=== PATIENT | male | born 1935 | race Caucasian/White ===

== ENCOUNTER 2017-08-11 14:44 | Emergency (ER) | payer MEDICARE ==
[~2017-08-11] VITALS: Ht 182.9 cm; Wt 63.5 kg
[~2017-08-11 14:44] MED LIST: ACET-1079 PO; ASPI-231 PO; BIS10RS PR; CHL10C PO; CLON0.1T PO; DON5T PO; HYDR-4683 PO; LAC30LQ PO; MET50T PO; MOMLQ PO; PROM25TA5 OR; RIV20T PO; SERT25TA84 PO; SODIENE26 RE; THIA50CA PO; ZOLP10TA PO; [UNRECOGNIZED DRUG - REMARK]
[2017-08-11 14:52] VITALS: BP 125/65
[2017-08-11 15:25] LABS: Basophils # (auto) 0.1 uL; Basophils % (auto) 1.2 % (0.0-2.0); Eosinophils # (auto) 0.2 uL; Eosinophils % (auto) 2.6 % (0.0-7.0); Hematocrit 36.5 % (41.0-53.0); Hemoglobin 12.3 g/dL (13.5-17.5); Lymphocytes # (auto) 2.1 uL; Mean Corpuscular Hemoglobin 31.3 pg (28.0-32.0); Mean Corpuscular Hgb Conc. 33.7 g/dL (32.0-36.0); Mean Corpuscular Volume 92.8 fL (80.0-100.0); Monocytes # (auto) 0.8 uL; Monocytes % (auto) 11.1 % (0.0-12.0); Neutrophils # (auto) 4.3 uL; Neutrophils % (auto) 57.1 % (37.0-80.0); Nucleated Red Blood Cells % 0.1 %; Platelet Count (auto) 237 10^3/uL (140-450); Red Blood Cells 3.93 10^6/uL (4.5-5.90); Red Cell Distribution Width 13.8 % (11.8-14.3); White Blood Cell 7.6 10^3/uL (4.4-10.8)
[2017-08-11 16:01] LABS: Alanine Aminotransferase 21 U/L (16-61); Albumin 3.8 g/dL (3.4-5.0); Alkaline Phosphatase 67 U/L (45-117); Anion Gap 10 (5-15); Aspartate Aminotransferase 20 U/L (15-37); BUN/Creatinine Ratio 17.8; Bilirubin, Total 0.8 mg/dL (0.2-1.0); Blood Alcohol < 3.0 mg/dL (0-5); Blood Urea Nitrogen 28 mg/dL (7-18); Calcium 8.9 mg/dL (8.5-10.1); Carbon Dioxide 21 mmol/L (21-32); Chloride 107 mmol/L (98-107); GFR African American 55 mL/min; GFR Non-African American 45 mL/min; Glucose 97 mg/dL (74-106); Magnesium 2.3 mg/dL (1.6-2.6); Potassium 4.7 mmol/L (3.5-5.1); Sodium 138 mmol/L (136-145); Total Protein 7.7 g/dL (6.4-8.2)
== END 2017-08-11 15:50 | disposition left against medical advice (07) ==
LOC: EDUNIT# 14:44 → ER 14:50
DX: R41.82 Altered mental status, unspecified (principal); Z53.21 Procedure and treatment not carried out due to patient leaving prior to being seen by health care provider
CPT/HCPCS: 36415; 80053; 80320; 83735; 84484; 85025; 93005

== ENCOUNTER 2019-02-16 17:09 | Inpatient (IN) | payer MEDICARE ==
[~2019-02-16] VITALS: Ht 180.3 cm; Wt 63.4 kg
[~2019-02-16 17:09] MED LIST changes: -HYDR-4683 PO; +HYDR-4833 PO
[2019-02-16 17:46] LABS: Basophils # (auto) 0.1 uL; Basophils % (auto) 0.9 % (0.0-2.0); Eosinophils # (auto) 0.2 uL; Eosinophils % (auto) 1.4 % (0.0-7.0); Hematocrit 41.9 % (41.0-53.0); Hemoglobin 13.4 g/dL (13.5-17.5); Lymphocytes % (auto) 16.4 % (10.0-50.0); Mean Corpuscular Hemoglobin 29.7 pg (28.0-32.0); Mean Corpuscular Hgb Conc. 31.9 g/dL (32.0-36.0); Mean Corpuscular Volume 92.9 fL (80.0-100.0); Monocytes # (auto) 1.3 uL; Monocytes % (auto) 10.6 % (0.0-12.0); Neutrophils # (auto) 8.8 uL; Neutrophils % (auto) 70.7 % (37.0-80.0); Platelet Count (auto) 377 10^3/uL (140-450); Red Blood Cells 4.51 10^6/uL (4.5-5.90); Red Cell Distribution Width 16.7 % (11.8-14.3); White Blood Cell 12.4 10^3/uL (4.4-10.8)
[2019-02-16] MEDS ORDERED: LORazepam 2MG/ML-1ML VIAL IV ONE (19:15)
[2019-02-16] MEDS ORDERED: SODIUM CHLORIDE 0.9% 500 ML IV ONE (19:15)
[2019-02-16] MEDS ORDERED: SODIUM CHLORIDE 0.9% 1,000 ML IV ONE (21:15)
[2019-02-16 21:59] LABS: Chloride 124 mmol/L (98-107); Potassium 3.9 mmol/L (3.5-5.1); Sodium 159 mmol/L (136-145)
[2019-02-16 22:00] LABS: INR 2.53 (0.9-1.15); Lactic Acid w/Reflex 2.1 mmol/L (0.4-2.0)
[2019-02-16 22:10] LABS: Alanine Aminotransferase 38 U/L (16-61); Albumin 3.2 g/dL (3.4-5.0); Alkaline Phosphatase 220 U/L (45-117); Anion Gap 9 (5-15); Aspartate Aminotransferase 49 U/L (15-37); BUN/Creatinine Ratio 35.8; Bilirubin, Total 1.3 mg/dL (0.2-1.0); Calcium 9.3 mg/dL (8.5-10.1); Carbon Dioxide 26 mmol/L (21-32); GFR African American 28 mL/min; GFR Non-African American 23 mL/min; Glucose 128 mg/dL (74-106); Total Protein 8.2 g/dL (6.4-8.2)
[2019-02-16 22:17] LABS: Blood Urea Nitrogen 100 mg/dL (7-18)
[2019-02-16] MEDS ORDERED: SOD CHL 0.45% 1,000 ML IV ONE (22:30)
[2019-02-16] MEDS ORDERED: PIPERACILLIN-TAZOB 3.375GM 100 ML IV ONE (23:45)
[2019-02-16] MEDS ORDERED: VANCOMYCIN PER PHARMACY 0 MG IV SCH (23:45)
[2019-02-16 23:51] LABS: Urine Bacteria FEW /hpf (None Seen); Urine Blood TRACE /uL (Negative); Urine Specific Gravity 1.019 (1.001-1.035); Urine WBC 1 /hpf (0 - 3)
[2019-02-17] MEDS ORDERED: VANCOMYCIN 1GM/250ML 250 ML IV ONE (00:30)
[2019-02-17] MEDS ORDERED: D5W/SOD CHL 0.45% 1,000 ML IV SCH ×2 (00:45→18:30)
[2019-02-17] MEDS ORDERED: ONDANSETRON HCL 4 MG/2 ML VIAL IV PRN (00:45)
[2019-02-17] MEDS ORDERED: TEMAZEPAM 15 MG CAP PO PRN (00:45)
[2019-02-17] MEDS ORDERED: ACETAMINOPHEN 325 MG TAB PO PRN (00:45)
[2019-02-17] MEDS ORDERED: MORPHINE SULF INJ 2 MG/ML SYRINGE 1ML IV PRN (01:15)
[2019-02-17] MEDS ORDERED: NITROGLYCERIN 0.4 MG SL TAB SL PRN (01:15)
[2019-02-17 09:00] VITALS: BP 139/72
--- NOTE | 2019-02-17 09:30 | NUR ---
Telemetry admit from ER THUANPURNIMA admitted to Telemetry unit after SBAR received. Patient oriented to JAVI CAPUTO, RN primary RN, unit, room, bed, and unit policies regarding patient care and visiting hours. Patient is ALOC, and sitter is at bedside for 24 hour patient care and monitoring. Patient now on continuous telemetry monitoring, tele box # 64 and telemetry reading on arrival to unit is normal sinus rhythm. Patient placed on bedside oxygen, weighed by bed scale and encouraged to call if they need something, but patient could not verbalize understanding. All questions and concerns addressed, patient verbalized understanding.
[2019-02-17] MEDS: cefTRIAXone 1GM/50ML D5W 50 ML IV SCH (09:38)
[2019-02-17] MEDS ORDERED: PANTOPRAZOLE 40 MG TAB PO SCH (10:00)
[2019-02-17] MEDS ORDERED: METOPROLOL TARTRATE 50 MG TAB PO SCH (10:00)
[2019-02-17] MEDS ORDERED: ASPirin 81 mg TAB PO SCH (10:00)
[2019-02-17 10:02] LABS: Albumin 2.7 g/dL (3.4-5.0); BUN/Creatinine Ratio 33.2; Calcium 8.6 mg/dL (8.5-10.1); Potassium 3.5 mmol/L (3.5-5.1)
[2019-02-17 10:04] LABS: Bilirubin, Total 1.4 mg/dL (0.2-1.0); Total Protein 7.1 g/dL (6.4-8.2)
[2019-02-17] MEDS: SOD CHL IV SCH ×2 (10:45→19:08)
[2019-02-17] MEDS: POTASSIUM CHLORIDE IV SCH ×2 (10:45→19:08)
[2019-02-17] MEDS: D5 IV SCH ×2 (10:45→19:08)
--- NOTE | 2019-02-17 10:46 | NUR ---
at bedside, Dr. Blas, exercise equipment repair technician. New orders received.
--- NOTE | 2019-02-17 11:00 | NUR ---
Dr. Blas, Pyrometallurgical Engineer, at bedside; new orders received.
[2019-02-17 11:05] VITALS: BP 139/72
[2019-02-17] MEDS: AZITHROMYCIN 500MG/ 250ML 250 ML IV SCH (11:16)
--- NOTE | 2019-02-17 11:40 | NUR ---
WOUND CARE NOTE: Wound care consult received for pressure injuries present on admission. Patient is an 83 yo male admitted for early sepsis. Patient with a history of pulmonary embolism, CHF, and Parkinson's dementia. Patient is seen with bedside RNMarley and Tory ROSEN at bedside. Patient is alert, but confused. No signs or symptoms of pain. Last Herb score is 10. Family states that patient has been becoming increasingly weak and is refusing to eat. Patient noted to have pressure injuries to left and right hips. Left hip measures 3x1.5cm partially covered with serous crust consistent with stage 2 pressure injury. Right hip measures 5x3cm and is covered in slough consistent with stage 3 pressure injury. Sacrum and buttocks covered with incontinence associated dermatitis and scratches. RECOMMENDATIONS: Dietary consult; Turn q2hrs; Specialty Mattress; Nursing to cleanse right and left hip wounds with wound cleanser, apply THERAHONEY GEL, cover with OPTIFOAM GENTLE, change every other day and PRN soiling; Nursing to cleanse buttocks with mild soap and water, pat dry, apply ZGUARD BID/PRN soiling; wound care team to follow. Addendum: 02/17/19 at 1750 by ERNIE FITZGERALD RN Amended: Links added.
--- NOTE | 2019-02-17 11:50 | NUR ---
professor of religious studiesGrazyna, at bedside.
[2019-02-17 12:17] LABS: Sodium Urine 44 mmol/L (40-220)
[2019-02-17 12:19] LABS: Creatinine, Urine 96 mg/dL (30.0-125.0)
[2019-02-17 13:00] VITALS: BP 117/46
--- NOTE | 2019-02-17 13:40 | NUR ---
at bedside, Dr. Hopkins. New orders received.
[2019-02-17 17:00] VITALS: BP 130/58
[2019-02-17] MEDS ORDERED: WARFARIN SODIUM 5 MG TAB PO ONE (17:00)
[2019-02-17] MEDS ORDERED: RIVAROXABAN 20 MG TAB PO SCH (18:00)
[2019-02-17] MEDS ORDERED: DONEPEZIL HYDROCHLORIDE 5 MG TAB PO SCH (22:00)
[2019-02-18] MEDS: SOD CHL IV SCH (03:31)
[2019-02-18] MEDS: POTASSIUM CHLORIDE IV SCH (03:31)
[2019-02-18] MEDS: D5 IV SCH (03:31)
[2019-02-18 04:48] VITALS: BP 148/69
[2019-02-18 05:01] VITALS: BP 137/77
[2019-02-18 05:51] LABS: Basophils # (auto) 0.1 uL; Basophils % (auto) 0.8 % (0.0-2.0); Eosinophils # (auto) 0.5 uL; Eosinophils % (auto) 4.1 % (0.0-7.0); Hematocrit 38.1 % (41.0-53.0); Hemoglobin 12.3 g/dL (13.5-17.5); Lymphocytes # (auto) 2.2 uL; Lymphocytes % (auto) 19.1 % (10.0-50.0); Mean Corpuscular Hemoglobin 29.8 pg (28.0-32.0); Mean Corpuscular Hgb Conc. 32.3 g/dL (32.0-36.0); Mean Corpuscular Volume 92.3 fL (80.0-100.0); Monocytes # (auto) 1.1 uL; Monocytes % (auto) 9.1 % (0.0-12.0); Neutrophils # (auto) 7.8 uL; Neutrophils % (auto) 66.9 % (37.0-80.0); Nucleated Red Blood Cells % 0.1 %; Platelet Count (auto) 302 10^3/uL (140-450); Red Blood Cells 4.13 10^6/uL (4.5-5.90); Red Cell Distribution Width 16.4 % (11.8-14.3); White Blood Cell 11.6 10^3/uL (4.4-10.8)
--- NOTE | 2019-02-18 06:00 | NUR ---
FULL LINEN CHANGE PROVIDED TO PATIENT. NEW GOWN PROVIDED. PATIENT IV SITE LEAKING TO RIGHT ARM. Z-GUARD APPLIED TO BUTTOCKS. OPTIFOAM REMAINS C/D/I.
[2019-02-18 06:07] LABS: Potassium 3.7 mmol/L (3.5-5.1)
[2019-02-18 06:09] LABS: INR 2.63 (0.9-1.15)
[2019-02-18 06:15] LABS: Albumin 2.7 g/dL (3.4-5.0); BUN/Creatinine Ratio 36.2; Bilirubin, Total 1.2 mg/dL (0.2-1.0); Calcium 8.7 mg/dL (8.5-10.1); Magnesium 2.9 mg/dL (1.6-2.6); Phosphorus 3.8 mg/dL (2.5-4.90); Total Protein 6.9 g/dL (6.4-8.2)
--- NOTE | 2019-02-18 06:23 | NUR ---
HOSPITALIST PAGED CRITICAL SODIUM 161
--- NOTE | 2019-02-18 06:30 | NUR ---
IV removal IV DC'd Right AC with clean sterile technique, catheter fully intact. Pressure dressing applied to site. Patient tolerated well. NOTE: IV leaking
--- NOTE | 2019-02-18 06:45 | NUR ---
IV insertion IV access obtained, via clean sterile technique by inserting 22 gauge catheter at Left FA after 2 attempts. IV secured properly. No trauma to site. Patient tolerated well.
--- NOTE | 2019-02-18 08:34 | NUR ---
Opening Shift Note Received report on the patient. Sleeping lying in bed. Patient shows no signs of distress at this time. Bed is in the lowest position, side rails up x2, and call light is within reach. Will continue to monitor.
[2019-02-18 09:16] VITALS: BP 156/73
[2019-02-18] MEDS: cefTRIAXone 1GM/50ML D5W 50 ML IV SCH (09:41)
[2019-02-18] MEDS: FAMOTIDINE (10MG/ML) 2ML VL IV SCH (09:42)
[2019-02-18] MEDS ORDERED: D5W/SOD CHL 0.45% 1,000 ML IV SCH (10:15)
[2019-02-18] MEDS: AZITHROMYCIN 500MG/ 250ML 250 ML IV SCH (11:36)
--- NOTE | 2019-02-18 12:00 | NUR ---
Nutrition consult/assessment Notes please see attached link for complete assessment Est. Needs IBW 78 [id number] kcal (25-30 kcal/kgBW), 78-85 gms pro (1.0-1.1 gms/kgBW). Will continue to monitor pertinent labs and reassess nutrient need prn Addendum: 02/18/19 at [address] Amended: Links added.
[2019-02-18] MEDS: POTASSIUM CHLORIDE 20 MEQ in D5W 5% 1,000 ML IV SCH ×2 (13:39→23:58)
--- NOTE | 2019-02-18 14:54 | NUR ---
PT PATIENT REFUSED PHYSICAL THERAPY. GOLD MELLO WAS NOTIFIED. Addendum: 02/18/19 at 1456 by CARINA CA PTT Amended: Links added.
--- NOTE | 2019-02-18 15:37 | NUR ---
Pt is an alert but confused male that resdies with his spouse, Vesna. Pt was on [facility] prior to admission and is appropriate to have care resumed upon discharge. Spouse verbalizes that she needs more assistance at home. Will discuss options of board and care, [place] aid and attendance program, and private pay caregivers for dic planning. Addendum: 02/18/19 at 1542 by COLUMBA FOSTER Amended: Links added.
[2019-02-18 17:50] VITALS: BP 143/72
[2019-02-18 22:00] VITALS: BP 158/69
[2019-02-19 05:00] VITALS: BP 153/67
--- NOTE | 2019-02-19 05:20 | NUR ---
DRESSING CHANGE PERFORMED TO LEFT AND RIGHT HIP WOUNDS PER ORDERS. RIGHT HIP WITH SANGUINEOUS DRAINAGE NOTED. LEFT HIP WITH SEROUS DRAINAGE NOTED. Z-GUARD APPLIED TO SACRUM/BUTTOCKS. REPOSITIONED PATIENT TO RIGHT SIDE WITH PILLOW FOR SUPPORT. TOTAL ASSIST. PATIENT REMAINS ON SPECIALTY MATTRESS. SITTER REMAINS AT BEDSIDE FOR PATIENT SAFETY.
[2019-02-19 06:27] LABS: Basophils # (auto) 0.1 uL; Basophils % (auto) 0.7 % (0.0-2.0); Eosinophils # (auto) 0.4 uL; Hematocrit 37.4 % (41.0-53.0); Hemoglobin 12.2 g/dL (13.5-17.5); Lymphocytes # (auto) 1.7 uL; Lymphocytes % (auto) 17.4 % (10.0-50.0); Mean Corpuscular Hemoglobin 30.3 pg (28.0-32.0); Mean Corpuscular Hgb Conc. 32.7 g/dL (32.0-36.0); Mean Corpuscular Volume 92.8 fL (80.0-100.0); Monocytes # (auto) 0.9 uL; Neutrophils # (auto) 6.7 uL; Neutrophils % (auto) 68.9 % (37.0-80.0); Platelet Count (auto) 282 10^3/uL (140-450); Red Blood Cells 4.03 10^6/uL (4.5-5.90); Red Cell Distribution Width 16.2 % (11.8-14.3); White Blood Cell 9.8 10^3/uL (4.4-10.8)
[2019-02-19 06:58] LABS: Albumin 2.4 g/dL (3.4-5.0); BUN/Creatinine Ratio 29.7; Bilirubin, Total 1.5 mg/dL (0.2-1.0); Calcium 8.6 mg/dL (8.5-10.1); Total Protein 6.5 g/dL (6.4-8.2)
[2019-02-19 06:59] LABS: INR 2.48 (0.9-1.15)
--- NOTE | 2019-02-19 07:30 | NUR ---
RECEIVED REPORT FROM NIGHT NURSE. PATIENT RESTING IN BED, SITTER AT BEDSIDE.
[2019-02-19] MEDS: POTASSIUM CHLORIDE 20 MEQ in D5W 5% 1,000 ML IV SCH (10:06)
[2019-02-19] MEDS: cefTRIAXone 1GM/50ML D5W 50 ML IV SCH (10:06)
[2019-02-19] MEDS: FAMOTIDINE (10MG/ML) 2ML VL IV SCH (10:14)
[2019-02-19] MEDS: AZITHROMYCIN 500MG/ 250ML 250 ML IV SCH (10:53)
--- NOTE | 2019-02-19 11:25 | NUR ---
PT Patient not arousable during morning PT visit. Addendum: 02/19/19 at 1126 by ABBI NYE PTT Amended: Links added.
[2019-02-19] MEDS: POTASSIUM CHLORIDE IV SCH ×2 (12:15→22:18)
[2019-02-19] MEDS: D5W 5% IV SCH ×2 (12:15→22:18)
--- NOTE | 2019-02-19 12:30 | NUR ---
DOCTOR FARAH AT BEDSIDE.
[2019-02-19 13:00] VITALS: BP 144/66
[2019-02-19 16:40] VITALS: BP 128/64
[2019-02-19 20:00] VITALS: BP 139/72
[2019-02-19 22:00] VITALS: BP 153/84
[2019-02-20 05:00] VITALS: BP 131/65
--- NOTE | 2019-02-20 05:01 | NUR ---
PT TURNED THROUGHOUT THE NIGHT. HAD A LARGE BM.CLEANED AND NEW LINEN APPLIED.PT COMBATIVE AND TRYING TO HIT STAFF.MITTENS ON.SITTER AT BEDSIDE.
[2019-02-20 06:43] LABS: INR 2.55 (0.9-1.15)
[2019-02-20 06:44] LABS: Potassium 4.4 mmol/L (3.5-5.1)
[2019-02-20 06:53] LABS: Albumin 2.4 g/dL (3.4-5.0); BUN/Creatinine Ratio 26.7
[2019-02-20 06:57] LABS: Bilirubin, Total 1.4 mg/dL (0.2-1.0); Total Protein 6.6 g/dL (6.4-8.2)
--- NOTE | 2019-02-20 07:34 | NUR ---
RECEIVED REPORT FROM NIGHT NURSE. PATIENT RESTING IN BED, NO DISTRESS NOTED. SITTER AT BEDSIDE. WILL CONTINUE TO MONITOR.
[2019-02-20 09:00] VITALS: BP 106/76
[2019-02-20] MEDS: FAMOTIDINE (10MG/ML) 2ML VL IV SCH (10:26)
[2019-02-20] MEDS: POTASSIUM CHLORIDE IV SCH (10:26)
[2019-02-20] MEDS: AZITHROMYCIN 500MG/ 250ML 250 ML IV SCH (10:26)
[2019-02-20] MEDS: cefTRIAXone 1GM/50ML D5W 50 ML IV SCH (10:26)
[2019-02-20] MEDS: D5W 5% IV SCH (10:26)
--- NOTE | 2019-02-20 11:42 | NUR ---
PT Patient not arousable during PT visit. Patient refuse to do PROM exercises during attempt. GOLD Rai made aware of what transpired with visit. Addendum: 02/20/19 at 1146 by ABBI NYE PTT Amended: Links added.
[2019-02-20 12:19] VITALS: BP 139/72
[2019-02-20 13:00] VITALS: BP 120/85
--- NOTE | 2019-02-20 13:54 | NUR ---
D/C Planning Per consult for Pt to resume service with [facility]. Contact [facility] Ph:) Fax:( [phone]) faxed medical records. Per Grazyna from [facility] Pt to resume service with hospice and will be going to [facility]. Ellis SETH and Kenia is the person to contact at [facility] Ph:). Contact [facility] Ph:). Per Spenser from [facility] transport grape picker time will be at 16:00 via [employer]. Informed GOLD Thomas. Addendum: 02/20/19 at 1400 by MEREDITH ANTUNEZ Amended: Links added.
[2019-02-20] MEDS ORDERED: D5W 5% 1,000 ML IV SCH (14:15)
[2019-02-20 17:00] VITALS: BP 122/82
--- NOTE | 2019-02-20 18:07 | NUR ---
PATIENT TRANSPORTED BY GURNEY TO [facility]. NO BELONGINGS LEFT AT BEDSIDE. PATIENT'S FAMILY AWARE OF TRANSFER.
== END 2019-02-20 18:09 | disposition hospice, home (50) | DRG 871 ==
LOC: ER 17:09 → EDBD 17:09 → TELE 17:10 → TELE-WESTW 02-17 08:32
PROVIDERS: ADMIT Nurse Practitioner; ATTEND Internal Medicine
DX: A41.9 Sepsis, unspecified organism (principal); N17.0 Acute kidney failure with tubular necrosis; L89.223 Pressure ulcer of left hip, stage 3; L89.213 Pressure ulcer of right hip, stage 3; G92 Toxic encephalopathy; J18.1 Lobar pneumonia, unspecified organism; R65.21 Severe sepsis with septic shock; E87.0 Hyperosmolality and hypernatremia; D68.9 Coagulation defect, unspecified; I50.32 Chronic diastolic (congestive) heart failure; E44.0 Moderate protein-calorie malnutrition; N39.0 Urinary tract infection, site not specified; Z68.1 Body mass index [BMI] 19.9 or less, adult; R62.7 Adult failure to thrive; E87.6 Hypokalemia; E86.0 Dehydration; F02.80 Dementia in other diseases classified elsewhere, unspecified severity, without behavioral disturbance, psychotic disturbance, mood disturbance, and anxiety; G20 Parkinson's disease; N18.9 Chronic kidney disease, unspecified; L89.312 Pressure ulcer of right buttock, stage 2; L89.322 Pressure ulcer of left buttock, stage 2; F01.50 Vascular dementia, unspecified severity, without behavioral disturbance, psychotic disturbance, mood disturbance, and anxiety; Z66 Do not resuscitate; R79.89 Other specified abnormal findings of blood chemistry; Z86.711 Personal history of pulmonary embolism; I69.311 Memory deficit following cerebral infarction; Z87.891 Personal history of nicotine dependence; Z91.013 Allergy to seafood
CPT/HCPCS: 36415; 36600; 70450; 71045; 76775; 80053; 81001; 82043; 82140; 82306; 82570; 82805; 83605; 83735; 83880; 83935; 83970; 84100; 84300; 84484; 85025; 85610; 85730; 87040; 87086; 93005; 96361; 96365; 96367; 96375; G0378; J0696; J2543; J3490